=== PATIENT | female | born 1955 | race Caucasian/White ===

== ENCOUNTER 2021-01-29 15:21 | Emergency (ER) | payer MEDICARE, SELFPAY ==
--- NOTE | 2021-01-29 15:25 | ED.URI ---
HPI - URI/Sore Throat General Chief Complaint: Upper Respiratory Infection Stated Complaint: aches cough headache Time Seen by Provider: 01/29/21 15:25 Source: patient and RN notes reviewed History of Present Illness HPI Narrative: Patient is a 65-year-old female who presents the urgent care with complaints of cough, headache, body aches and fever. Patient states her symptoms started this morning and she has been taking zinc and using Tylenol. Patient states she did have positive Covid exposure from her sister and [id number] 2 weeks ago. Patient denies any shortness of breath or chest pain. States that she has not been vaccinated for either flu or Covid. No other acute complaints. No acute distress noted. Patient read the plan of care. Some parts of this dictation were generated by voice recognition software and may contain typographical and/or grammatical inaccuracies. Related Data Home Medications Medication Instructions Recorded Confirmed No Home Medications 01/29/21 01/29/21 Allergies Allergy/AdvReac Type Severity Reaction Status Date / Time iodine Allergy Unknown UNKNOWN Verified 01/29/21 15:29 Penicillins Allergy Unknown Unknown Verified 01/29/21 15:29 Sulfa (Sulfonamide Allergy Unknown Unknown Verified 01/29/21 15:29 Antibiotics) Review of Systems Review of Systems: CONSTITUTIONAL: Reports of fever, chills, body aches EYES: Denies visual changes, redness, or discharge. ENT: Reports of sneezing, sinus congestion and postnasal drainage CARDIOVASCULAR: Denies chest pain, palpitations, or edema. RESPIRATORY: Reports of cough without dyspnea GASTROINTESTINAL: Denies abdominal pain, nausea, vomiting, or diarrhea. GENITOURINARY: Denies dysuria or hematuria. SKIN: Denies rash or itching. MUSCULOSKELETAL: Denies back pain, joint pain NEUROLOGIC: Reports of headache All other systems reviewed are negative, except as documented in HPI. PMFSH Comments At the time of my signature, I reviewed and agree with the nursing past medical, surgical, social, and family history. There is no relevant family history pertinent to the patient complaint. Exam Narrative: GENERAL: This is a well-nourished, well-developed patient, in no apparent distress. HEAD: normocephalic, atraumatic. EYES: PERRL. Sclera clear/white. Vision is grossly intact. EARS: External ears normal, auditory canals clear and without drainage, TMs normal without perforation. Hearing grossly intact. NOSE: External nose normal with no obvious nasal discharge, nares without redness, no rhinorrhea. THROAT: Mucous membranes moist, mild erythema noted posterior pharynx with moderate postnasal drainage NECK: Neck supple, non-tender without lymphadenopathy CARDIOVASCULAR: Regular rate and rhythm without murmurs, gallops, or rubs. RESPIRATORY: Notable cough throughout exam and with deep breathing. Clear to auscultation. Breath sounds equal bilaterally. No wheezes, rales, or rhonchi. SKIN: warm, intact with no suspicious lesions or rash, good texture and turgor. NEURO: awake, alert, and oriented to person, place and time. There were no obvious focal neurologic abnormalities. EXTREMITIES: No clubbing, cyanosis, or edema. Course Vital Signs Vital signs: Vital Signs Temperature 98.1 F 01/29/21 15:30 Pulse Rate 95 01/29/21 15:30 Respiratory Rate 18 01/29/21 15:30 Blood Pressure 129/64 01/29/21 15:30 Pulse Oximetry 98 01/29/21 15:30 Temperature 98.1 F 01/29/21 15:30 Pulse Rate 95 01/29/21 15:30 Respiratory Rate 18 01/29/21 15:30 Blood Pressure 129/64 01/29/21 15:30 Pulse Oximetry 98 01/29/21 15:30 Reviewed MDM - URI/Sore Throat MDM Narrative Medical decision making narrative: Reviewed lab results with the patient. She is aware that flu swab was negative. We will send out a Covid PCR swab and call you with results. If you do not receive a phone call by Wednesday you may call and check on the results. Considering pat
[2021-01-29 15:30] VITALS: BP 129/64; PULSE 95; RESP 18; TEMP 36.7; O2SAT 98
[2021-01-30 15:23] LABS: SARS-CoV-2 RNA PCR Negative
== END 2021-01-29 16:10 | disposition home or self-care (01) ==
PROVIDERS: Emergency Provider Nurse Practitioner Family
DX: J06.9 Acute upper respiratory infection, unspecified (principal); Z20.822 Contact with and (suspected) exposure to COVID-19
CPT/HCPCS: 87804; 99213; C9803; G0463; U0003; U0005